=== PATIENT | male | born 1985 | race Caucasian/White ===

== ENCOUNTER 2017-10-04 15:24 | Emergency (ER) | payer OTHER ==
[~2017-10-04] VITALS: Ht 167.6 cm; Wt 81.7 kg
[2017-10-04] MEDS ORDERED: IBUPROFEN600 MG PO (16:19)
[2017-10-04] MEDS ORDERED: NORCO 5-325 TA1 EACH PO (16:29)
== END 2017-10-04 17:05 | disposition home or self-care (01) ==
LOC: ED 15:24
DX: S82.401A Unspecified fracture of shaft of right fibula, initial encounter for closed fracture (principal); F17.200 Nicotine dependence, unspecified, uncomplicated; W22.8XXA Striking against or struck by other objects, initial encounter; Y99.0 Civilian activity done for income or pay
CPT/HCPCS: 29505; 73590; 99283